=== PATIENT | female | born 1990 | race Hispanic/Latino ===

== ENCOUNTER 2018-02-23 17:11 | Emergency (ER) | payer OTHER ==
--- NOTE | 2018-02-23 18:34 | ER ---
Nurse's Notes [facility] Name: Jessie Garvin Age: 27 yrs Sex: Female : 1990 Arrival Date: 02/23/2018 Time: 17:16 Bed 19 Private MD: Diagnosis: Acute upper respiratory infection, unspecified;Acute serous otitis media, right ear; state Presentation: 02/23 17:16 Presenting complaint: Patient states: LMP- 07/23/17; Ear pain and sore throat started 2 hj days ago; took Robitussin and not helping; denies fever and chills;. Transition of care: patient was not received from another setting of care. Onset of symptoms was February 23, 2018. Initial Sepsis Screen: Does the patient meet any 2 criteria? No. Patient's initial sepsis screen is negative. Does the patient have a suspected source of infection? No. Patient's initial sepsis screen is negative. Care prior to arrival: None. 17:16 Method Of Arrival: Ambulatory 17:16 Acuity: OLGA 4 hj Triage Assessment: 17:18 General: Appears in no apparent distress. uncomfortable, Behavior is calm, cooperative, hj appropriate for age. Pain: Complains of pain in throat. EENT: Reports pain when swallowing. 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 - Social history:: Smoking status: unknown. Screenin:56 Abuse screen: Denies threats or abuse. Denies injuries from another. Nutritional iw screening: No deficits noted. Tuberculosis screening: No symptoms or risk factors identified. Fall Risk None identified. Assessment: 17:47 General: Appears in no apparent distress. comfortable, Behavior is calm, cooperative, em appropriate for age, Denies fever. Pain: Complains of pain in throat and right ear Pain currently is 7 out of 10 on a pain scale. Pain began 2-3 days ago. Neuro: Level of Consciousness is awake, alert, obeys commands, Oriented to person, place, time, situation. Cardiovascular: Capillary refill < 3 seconds Patient's skin is warm and dry. Respiratory: Airway is patent Respiratory effort is even, unlabored, Respiratory pattern is regular, symmetrical. Respiratory: Reports cough that is non-productive. GI: Abdomen is round. : No signs and/or symptoms were reported regarding the genitourinary system. EENT: Throat is clear is pink Reports difficulty swallowing since yesterday Denies nasal congestion, nasal discharge. Derm: Skin is intact, Skin is pink, warm \T\ dry. Musculoskeletal: Range of motion: intact in all extremities. 18:55 Reassessment: Patient appears in no apparent distress at this time. Patient and/or iw family updated on plan of care and expected duration. Pain level reassessed. Patient is alert, oriented x 3, equal unlabored respirations, skin warm/dry/pink. I agree with above assessment by Freddy Tam LVN. Vital Signs: 17:19 BP 118 / 61; Pulse 103; Resp 18; Temp 97.6(TE); Pulse Ox 99% on R/A; Weight 70.76 kg; hj Height 5 ft. 4 in. (162.56 cm); 17:19 Body Mass Index 26.78 (70.76 kg, 162.56 cm) ED Course: 17:16 Patient arrived in ED. hj 17:18 Triage completed. hj 17:19 Rohan Birmingham MD is Attending Physician. snw 17:19 Susan Mariano FNP-C is PHCP. snw 17:19 Arm band placed on right wrist. hj 17:50 Patient has correct armband on for positive identification. iw 17:59 Freddy Tam LVN is Primary Nurse. em 18:56 No provider procedures requiring assistance completed. Patient did not have IV access iw during this emergency room visit. Administered Medications: 18:54 Drug: Augmentin 875 mg Route: PO; iw 18:55 Follow up: Response: No adverse reaction iw Outcome: 18:33 Discharge ordered by . snw 18:56 Discharged to home ambulatory, with family. iw 18:56 Condition: good 18:56 Discharge instructions given to patient, Instructed on discharge instructions, follow up and referral plans. medication usage, Demonstrated understanding of instructions, follow-up care, medications, Prescriptions given X 1. 18:57 Patient left the ED. iw Signatures: Susan Mariano FNP-C DIGITAL PRODUCTION MANAGER-Csnw Freddy Tam LVN FINISHER CARD TENDER Kathrine Segura, ANIBAL RN iw Calrito Cormier RN RN hj Corrections: (The following items were deleted from the chart) 17:22 17:19 Pulse 103bpm; Resp 18bpm; Pulse Ox 99% RA; Temp 97.6F Temporal; 70.76 kg; Height hj 5 ft. 4 in.; BMI: 26.7; hj
--- NOTE | 2018-02-23 18:34 | EDPHYS ---
Physician Documentation [facility] Name: Jessie Garvin Age: 27 yrs Sex: Female : 1990 Arrival Date: 02/23/2018 Time: 17:16 Bed 19 Private MD: ED Physician Rohan Birmingham HPI: 02/23 18:43 This 27 yrs old Female presents to ER via Ambulatory with complaints of Ear snw Pain, Sore Throat. 18:43 The patient presents with pain, that is acute. The complaints affect the right ear. snw Onset: The symptoms/episode began/occurred acutely. Modifying factors: The symptoms are alleviated by nothing. Associated signs and symptoms: Pertinent positives: sore throat, cough. Severity of symptoms: At their worst the symptoms were moderate. It is unknown whether or not the patient has had similar symptoms in the past. The patient has been recently seen by a physician: an press tender short goods specialist. 30wk IUP, pt became congested 2 days ago, + cough, taking robitussin, ear pain and sore throat x 2 days. 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 - Social history:: Smoking status: unknown. ROS: 18:43 Eyes: Negative for injury, pain, redness, and discharge. snw 18:43 Neck: Negative for injury, pain, and swelling, Cardiovascular: Negative for chest pain, palpitations, and edema. 18:43 Back: Negative for injury and pain, : Negative for injury, bleeding, discharge, and swelling, MS/Extremity: Negative for injury and deformity, Skin: Negative for injury, rash, and discoloration, Neuro: Negative for headache, weakness, numbness, tingling, and seizure. 18:43 Constitutional: Positive for body aches, malaise. 18:43 ENT: Positive for ear pain, nasal discharge, sore throat. 18:43 Respiratory: Positive for cough. 18:43 Abdomen/GI: Positive for 30 wk IUP. Exam: 18:46 Constitutional: This is a well developed, well nourished patient who is awake, alert, snw and in no acute distress. Head/Face: Normocephalic, atraumatic. Eyes: Pupils equal round and reactive to light, extra-ocular motions intact. Lids and lashes normal. Conjunctiva and sclera are non-icteric and not injected. Cornea within normal limits. Periorbital areas with no swelling, redness, or edema. 18:46 Chest/axilla: Normal chest wall appearance and motion. Nontender with no deformity. No lesions are appreciated. 18:46 Back: No spinal tenderness. No costovertebral tenderness. Full range of motion. Skin: Warm, dry with normal turgor. Normal color with no rashes, no lesions, and no evidence of cellulitis. MS/ Extremity: Pulses equal, no cyanosis. Neurovascular intact. Full, normal range of motion. Neuro: Awake and alert, GCS 15, oriented to person, place, time, and situation. Cranial nerves II-XII grossly intact. Motor strength 5/5 in all extremities. Sensory grossly intact. Cerebellar exam normal. Normal gait. 18:46 ENT: Ear canal(s): are normal, TM's: erythema, fluid levels, on the right, Examination of the other ear shows no obvious abnormality, Nose: Nasal mucosa: edematous, Mouth: is normal, Posterior pharynx: erythema, that is mild, that is moderate, Voice: is normal. 18:46 Cardiovascular: Rate: tachycardic, Heart sounds: normal. 18:46 Respiratory: the patient does not display signs of respiratory distress, Respirations: normal, Breath sounds: are clear throughout, cough. 18:46 Abdomen/GI: Inspection: gravid appearance, is noted, Bowel sounds: normal, in all quadrants. Vital Signs: 17:19 BP 118 / 61; Pulse 103; Resp 18; Temp 97.6(TE); Pulse Ox 99% on R/A; Weight 70.76 kg; hj Height 5 ft. 4 in. (162.56 cm); 17:19 Body Mass Index 26.78 (70.76 kg, 162.56 cm) MDM: 17:41 Patient medically screened. snw 18:49 Data reviewed: vital signs, nurses notes. Data interpreted: Pulse oximetry: on room air snw is 99 %. Interpretation: normal. Counseling: I had a detailed discussion with the patient and/or guardian regarding: the historical points, exam findings, and any diagnostic results supporting the discharge/admit diagnosis, lab results, the need for outpatient follow up, for definitive care, to return to the emergency department if symptoms worsen or persist or if there are any questions or concerns that arise at home. Special discussion: Based on the history and exam findings, there is no indication for further emergent testing or inpatient evaluation. I discussed with the patient/guardian the need to see the OB Gyne specialist for further evaluation of the symptoms. I discussed with the patient/guardian the need to see the primary care provider for further evaluation of the symptoms. 02/23 17:21 Order name: Strep; Complete Time: 17:41 hj 02/23 17:40 Order name: Throat Culture EDMS Administered Medications: 18:54 Drug: Augmentin 875 mg Route: PO; iw 18:55 Follow up: Response: No adverse reaction iw Disposition: 02/23/18 18:33 Discharged to Home. Impression: Acute upper respiratory infection, unspecified, Acute serous otitis media, right ear, state. - Condition is Stable. - Discharge Instructions: Otitis Media, Adult, Upper Respiratory Infection, Adult, Cool Mist Vaporizers, Rehydration, Adult. - Prescriptions for Augmentin 875- 125 mg Oral Tablet - take 1 tablet by ORAL route every 12 hours for 10 days; 20 tablet. - Medication Reconciliation Form, Thank You Letter, Antibiotic Education, Prescription Opioid Use form. - Follow up: Private Physician; When: 5 - 6 days; Reason: Recheck today's complaints, Continuance of care, Re-evaluation by your physician. Follow up: Emergency Department; When: As needed; Reason: Worsening of condition. Addendum: 02/26/2018 06:20 Co-signature as Attending Physician, Rohan Birmingham MD Available for consultation at p s1 all times. . Signatures: Dispatcher [employer] Susan Mariano, PRINCIPAL DATABASE DEVELOPER-C PRINCIPAL DATABASE DEVELOPER-Csnw Kathrine Perez, RN Carlito Cantrell RN Rohan Parikh MD MD ps1
[2018-02-23] MEDS ORDERED: AMOX/K CLAV 875 MG TAB ONE (18:51)
== END 2018-02-23 18:57 | disposition home or self-care (01) ==
LOC: ER 17:11
DX: H65.01 Acute serous otitis media, right ear (principal); J06.9 Acute upper respiratory infection, unspecified; Z3A.30 30 weeks gestation of pregnancy
CPT/HCPCS: 87070; 87081; 99283